=== PATIENT | female | born 1965 | race Caucasian/White ===

== ENCOUNTER 2017-06-27 08:07 | Emergency (ER) | payer OTHER ==
[~2017-06-27] VITALS: Ht 154.9 cm; Wt 107.4 kg
[~2017-06-27 08:07] MED LIST: AMBIEN10 MG PO; APIDRA SOL100 UNIT/1 SC; LANTUS 3 M100 UNITS1 SC; LIPITOR20 MG PO; LISINOPRIL10 MG PO; VICTOZA 2-0.6 MG/0.1 SC
[2017-06-27 08:42] LABS: HEMATOCRIT 42.7 % (36.0-46.0); HEMOGLOBIN 14.6 G/DL (11.9-15.5); MCH 31.1 PG (29.0-34.0); MCHC 34.2 G/DL (30.0-36.0); PLATELET COUNT 190 K/uL (156-360); RBC DIS.WIDTH-CV 13.2 % (11.8-14.6); RBC DIS.WIDTH-SD 44.7 % (39-53); RED BLOOD COUNT 4.69 M/uL (3.80-5.20); WHITE BLOOD COUNT 7.5 K/uL (4.1-10.2)
[2017-06-27 08:51] LABS: CHLORIDE 105 mEq/L (99-109); POTASSIUM 5.1 mEq/L (3.7-5.4); SODIUM 137 mEq/L (136-147)
[2017-06-27 08:53] LABS: GLUCOSE 195 mg/dL (70-99)
[2017-06-27 08:57] LABS: CREATININE 0.7 mg/dL (0.6-1.3); GFR ESTIMATE (CALCULATED) > 59 mL/min/
[2017-06-27 08:58] LABS: UREA NITROGEN (BUN) 21 mg/dL (9-23)
[2017-06-27 09:01] LABS: TROP-I INTERPRETATION NEGATIVE; TROPONIN-I < 0.01 ng/mL (0.0-0.30)
[2017-06-27 11:27] LABS: TROP-I INTERPRETATION NEGATIVE; TROPONIN-I < 0.01 ng/mL (0.0-0.30)
[2017-06-27 12:10] LABS: D-DIMER ELISA < 150.00 ng/mLDDU (<230)
[2017-06-27 13:14] VITALS: BP 198/79
== END 2017-06-27 13:16 | disposition home or self-care (01) ==
LOC: EME 08:07
PROVIDERS: Nurse Practitioner Family
DX: R07.89 Other chest pain (principal); E11.65 Type 2 diabetes mellitus with hyperglycemia; I10 Essential (primary) hypertension; Z79.4 Long term (current) use of insulin
CPT/HCPCS: 71046; 80048; 84484; 85027; 85379; 93005; 99281; 99284

== ENCOUNTER 2017-10-28 05:11 | Emergency (ER) | payer OTHER ==
[~2017-10-28] VITALS: Ht 160 cm; Wt 110.6 kg
[2017-10-28] MEDS ORDERED: PREDNISONE50 MG PO (05:58)
[2017-10-28 06:26] VITALS: BP 188/110
== END 2017-10-28 06:27 | disposition home or self-care (01) ==
LOC: EME 05:11
DX: J30.2 Other seasonal allergic rhinitis (principal); J45.909 Unspecified asthma, uncomplicated; E11.9 Type 2 diabetes mellitus without complications; Z79.4 Long term (current) use of insulin
CPT/HCPCS: 71046; 80048; 85027; 94640; 99281; 99284; J7512